=== PATIENT | female | born 1950 | race African-American/Black ===

== ENCOUNTER → 2016-08-13 | Outpatient (CLI) | payer MEDICARE, MEDICAID ==
[~2016-08-13] MED LIST: ASPIRIN; BIMA2.5D4; CARV12.545; COREG; EZET10TA; HYDR-3282; LOSA1TAB33; LOSARTAN; OMEPRAZOLE; SIMV20TA6; SIMVASTATIN; TIMO15DR12; ZETIA; ZOLP5TAB8
== END | disposition home or self-care (01) ==
LOC: MAMMO 08:04
PROVIDERS: ATTEND Internal Medicine Nephrology
DX: Z12.31 Encounter for screening mammogram for malignant neoplasm of breast (principal)
CPT/HCPCS: G0202

== ENCOUNTER → 2017-08-23 | Outpatient (CLI) | payer MEDICARE, MEDICAID ==
[~2017-08-23] MED LIST changes: -EZET10TA; -LOSA1TAB33; +LOSA1TAB40; +ZET10
== END | disposition home or self-care (01) ==
LOC: MAMMO 09:27
PROVIDERS: ATTEND Internal Medicine Nephrology
DX: Z12.31 Encounter for screening mammogram for malignant neoplasm of breast (principal)
CPT/HCPCS: 77067

== ENCOUNTER 2017-10-25 12:39 | Emergency (ER) | payer MEDICARE, MEDICAID ==
[~2017-10-25] VITALS: Ht 154.9 cm; Wt 64.0 kg
[2017-10-25] MEDS ORDERED: IBUPROFEN 400MG TABLET PO ONE (13:00)
[2017-10-25 14:34] VITALS: BP 177/63
== END 2017-10-25 15:21 | disposition home or self-care (01) ==
LOC: ER 12:39
DX: M25.511 Pain in right shoulder (principal); M25.521 Pain in right elbow
CPT/HCPCS: 73030; 99284

== ENCOUNTER → 2017-12-09 | Outpatient (CLI) | payer MEDICARE, MEDICAID | END | disposition home or self-care (01) | LOC: MRI 08:17 | PROVIDERS: ATTEND Internal Medicine Nephrology | DX: M75.101 Unspecified rotator cuff tear or rupture of right shoulder, not specified as traumatic (principal); E11.9 Type 2 diabetes mellitus without complications; I10 Essential (primary) hypertension | CPT/HCPCS: 73221 ==

== ENCOUNTER 2019-09-20 09:54 | Emergency (ER) | payer MEDICARE, MEDICAID ==
[~2019-09-20] VITALS: Ht 165.1 cm; Wt 70.0 kg
[~2019-09-20 09:54] MED LIST changes: +EZET10TA13; +SIMV-43; -SIMV20TA6; -ZET10
[2019-09-20 10:01] VITALS: BP 189/98
[2019-09-20] MEDS ORDERED: DIPHENHYDRAMINE 25MG CAPSULE PO ONE (10:15)
[2019-09-20] MEDS ORDERED: PREDNISONE 20MG TABLET PO ONE (10:15)
[2019-09-20] MEDS ORDERED: FAMOTIDINE 20MG TABLET PO ONE (10:15)
== END 2019-09-20 10:39 | disposition home or self-care (01) ==
LOC: ER 09:54
DX: L50.9 Urticaria, unspecified (principal); I10 Essential (primary) hypertension; I25.2 Old myocardial infarction
CPT/HCPCS: 99284; J7512; Q0163

== ENCOUNTER 2020-11-03 01:02 | Emergency (ER) | payer MEDICARE, MEDICAID ==
[~2020-11-03] VITALS: Ht 154.9 cm; Wt 64.0 kg
[~2020-11-03 01:02] MED LIST changes: -HYDR-3282; +HYDR-4348
[2020-11-03] MEDS ORDERED: NA PHOS,M-B/NA PHOS,DI-BA ENEMA 118ML PR ONE (03:15)
[2020-11-03 04:30] VITALS: BP 158/79
[2020-11-03] MEDS ORDERED: NA P133E4 RC (04:36)
== END 2020-11-03 04:53 | disposition home or self-care (01) ==
LOC: ER 04:07
DX: K59.00 Constipation, unspecified (principal); R03.0 Elevated blood-pressure reading, without diagnosis of hypertension
CPT/HCPCS: 99281

== ENCOUNTER 2021-10-19 11:05 | Emergency (ER) | payer MEDICARE, MEDICAID ==
[~2021-10-19] VITALS: Ht 157.5 cm; Wt 70.0 kg
[~2021-10-19 11:05] MED LIST changes: +NA P133E4 RC
[2021-10-19 11:52] VITALS: BP 116/56
[2021-10-19] MEDS ORDERED: ONDANSETRON 4MG ODT PO ONE (12:45)
[2021-10-19] MEDS ORDERED: ONDA4TAB50 MT (12:52)
[2021-10-21] MEDS ORDERED: LOSA50TA41 PO (17:28)
[2021-10-21] MEDS ORDERED: FLUO5DRO2 EACHEYE (17:38)
[2021-10-21] MEDS ORDERED: LATA7.5D OP (17:38)
[2021-10-21] MEDS ORDERED: AMLO5TAB88 MT (17:38)
[2021-10-21] MEDS ORDERED: TRAM50TA3 MT (17:38)
[2021-10-21] MEDS ORDERED: PRED5DRO22 BOTHEYE ×2 (17:38)
== END 2021-10-19 13:09 | disposition home or self-care (01) ==
LOC: ER 11:05
DX: R10.9 Unspecified abdominal pain (principal); R11.2 Nausea with vomiting, unspecified
CPT/HCPCS: 99283; Q0162

== ENCOUNTER 2023-04-20 03:56 | Emergency (ER) | payer MEDICARE, MEDICAID ==
[~2023-04-20] VITALS: Ht 154.9 cm; Wt 56.0 kg
[~2023-04-20 03:56] MED LIST changes: +AMLO5TAB88 MT; -ASPIRIN; -BIMA2.5D4; -CARV12.545; -COREG; -EZET10TA13; +FLUO5DRO2 EACHEYE; -HYDR-4348; +LATA7.5D OP; -LOSA1TAB40; +LOSA50TA41 PO; -LOSARTAN; -NA P133E4 RC; -OMEPRAZOLE; +ONDA4TAB50 MT; +PRED5DRO22 BOTHEYE; -SIMV-43; -SIMVASTATIN; -TIMO15DR12; +TRAM50TA3 MT; -ZETIA; -ZOLP5TAB8
[2023-04-20] MEDS ORDERED: METHYLPREDNISOLONE SOD SUCC 125MG/2ML (ACT-O-VIAL) IV STA (04:07)
[2023-04-20] MEDS ORDERED: ALBUTEROL (0.083%) 2.5MG/3ML NEB HHN STA (04:07)
[2023-04-20] MEDS ORDERED: IPRATROPIUM BROMIDE (0.02%) 0.5MG/2.5ML NEB HHN STA (04:07)
[2023-04-20] MEDS ORDERED: SODIUM CHLORIDE 0.9% 500 ML IV ONE (04:15)
[2023-04-20 04:31] VITALS: BP 173/86; O2SAT 97
[2023-04-20 05:36] LABS: BASOPHILS % 0.9 % (0.0-2.0); DIFFERENTIAL COMMENT 0; EOSINOPHILS % 4.2 % (0.0-5.0); HEMATOCRIT. 32.9 % (36.0-48.0); HEMOGLOBIN. 10.2 g/dL (12.0-16.0); LYMPHOCYTES % 30.5 % (20.0-50.0); MEAN CORPUSCULAR HEMOGLOBIN 23.8 pg (28.0-32.0); MEAN CORPUSCULAR HGB CONC 31.1 g/dL (31.0-37.0); MEAN CORPUSCULAR VOLUME 76.6 fL (81.0-99.0); MEAN PLATELET VOLUME 9.3 fl (7.4-10.4); NEUTROPHILS % 53.4 % (40.0-76.0); PLATELET 245 x1000/uL (130-400); RED BLOOD CELL COUNT 4.29 mill/uL (4.2-5.4); RED CELL DISTRIBUTION WIDTH 15.5 % (11.6-14.6); WHITE BLOOD COUNT 6.1 x1000/uL (4.5-11.0)
[2023-04-20 05:45] LABS: PARTIAL THROMBOPLASTIN TIME 27.7 sec (23.4-31.0); PROTHROMBIN TIME 10.3 sec (9.6-11.0)
[2023-04-20 05:49] LABS: ALANINE AMINOTRANSFERASE 8 IU/L (10-49); ALBUMIN 4.4 g/dL (3.2-4.8); ASPARTATE AMINOTRANSFERASE 17 IU/L (<34); BILIRUBIN TOTAL 0.5 mg/dL (0.1-1.0); CALCIUM 9.4 mg/dL (8.7-10.4); CARBON DIOXIDE 29 mEq/L (21-32); CHLORIDE 104 mEq/L (98-107); CREATININE 1.3 mg/dL (0.6-1.0); GLUCOSE 97 mg/dL (70-105); POTASSIUM 3.3 mEq/L (3.5-5.1); PROTEIN TOTAL 8.1 g/dL (6.0-8.3); SODIUM 140 mEq/L (136-145); TROPONIN I HIGH SENSITIVITY 8 ng/L (3.0-34); UREA NITROGEN BLOOD 20 mg/dL (9-23)
[2023-04-20 05:51] LABS: ETHANOL BLOOD < 10 mg/dL (<10)
[2023-04-20] MEDS ORDERED: FLUTICASONE PROPIONATE 50MCG/SPRAY BOTTLE BOTHNSTRLS STA (07:41)
[2023-04-20 08:42] VITALS: PULSE 76; RESP 16; TEMP 97.9
== END 2023-04-20 09:15 | disposition home or self-care (01) ==
LOC: ER 03:56
DX: R09.81 Nasal congestion (principal); I11.9 Hypertensive heart disease without heart failure; I25.2 Old myocardial infarction
CPT/HCPCS: 80053; 80320; 83880; 83605; 83690; 85025; 85610; 85730; 87040; 84484; 36415; 84145; 71045; 93005; 99285; J7040; G0480

== ENCOUNTER 2023-07-05 09:32 | Emergency (ER) | payer MEDICARE, MEDICAID ==
[~2023-07-05] VITALS: Ht 154.9 cm; Wt 56.2 kg
[2023-07-05 09:38] VITALS: O2SAT 100
[2023-07-05] MEDS: MAGNESIUM HYDROXIDE 400MG/5ML 30ML UDC PO ONE (11:00)
[2023-07-05] MEDS: SODIUM POLYSTYRENE SULFONATE 15 G/60 ML BOT PO ONE (11:00)
[2023-07-05] MEDS: MAGNESIUM/ALUMINUM HYDROXIDE/SIMETHICONE 30ML UDC PO STA (11:19)
[2023-07-05] MEDS ORDERED: DOCU-138 MT (12:26)
[2023-07-05 12:30] VITALS: BP 150/70; PULSE 62; RESP 18; TEMP 98.6
== END 2023-07-05 12:53 | disposition home or self-care (01) ==
LOC: ER 09:32
DX: K59.00 Constipation, unspecified (principal); I25.2 Old myocardial infarction; I10 Essential (primary) hypertension; Z79.899 Other long term (current) drug therapy; Z98.890 Other specified postprocedural states
CPT/HCPCS: 71045; 74018; 99284